=== PATIENT | male | born 1960 | race African-American/Black ===

== ENCOUNTER 2017-04-18 20:56 | Inpatient (IN) | payer MEDICAID, OTHER ==
[~2017-04-18] VITALS: Ht 170.2 cm; Wt 41.7 kg
[2017-04-18] MEDS: NACL 0.9% 1,000 ML IV SCH (01:00)
--- NOTE | 2017-04-18 20:56 | NUR ---
Patient BIBA ACLS accompanied by LACoFD, transferred to bed 2. RN evaluating patient at bedside.
[2017-04-18 21:00] VITALS: BP 128/96
--- NOTE | 2017-04-18 21:00 | NUR ---
Note siobhan in EDM - 04/18/17 at 2327 by MEDJN 57 Y/O Mary Jo MORALES FROM [facility] W/C/O ALOC. VSS, PT ALERT AND ORIENTED X 3, TACHY 114. MED HX PARALYZE FROM WAIST DOWN, AND HTN, CHOLOSTOMY. TERRY GONZALEZ MADE AWARE.
--- NOTE | 2017-04-18 21:00 | NUR ---
Deon mccann in EDM - 04/19/17 at 0041 by LUZ MARINA Patient noted to have existing wounds upon arrival to ER. Wound covered with dressing. PICTURES TO BE TAKEN. Physician informed.
--- NOTE | 2017-04-18 21:00 | NUR ---
Patient noted to have existing wounds TO COCYX AREA upon arrival to ER. Wound covered with dressing. PICTURES TO BE TAKEN. Physician informed.
--- NOTE | 2017-04-18 21:00 | NUR ---
57 Y/O M JORGEKirill FROM [facility] W/C/O ALOC. VSS, PT ALERT AND ORIENTED X 3, TACHY 114. MED HX DISABLE UNABLE TO WALK, AND HTN, CHOLOSTOMY. ER MD MADE AWARE.
[2017-04-18] MEDS ORDERED: NACL 0.9% 1,000 ML IV ONE ×2 (21:05→23:10)
--- NOTE | 2017-04-18 21:10 | NUR ---
TERRY GONZALEZ AT BEDSIDE.
--- NOTE | 2017-04-18 21:10 | NUR ---
PT REFUSES TO BE TURN, UNABLE TO ACCESS WOUND ON COCYX AREA, COVER WITH DRESSINGS. CHARGE NURSE MADE AWARE.
--- NOTE | 2017-04-18 21:51 | NUR ---
Patient taken to CT scan via gurney by Tour Desk.
--- NOTE | 2017-04-18 21:53 | NUR ---
PT TAKEN FOR CT SCAN
[2017-04-18 21:55] LABS: BASOPHILS # (AUTO) 0.4 K/uL (0.00-0.22); BASOPHILS % (AUTO) 2.2 % (0.0-2.0); EOSINOPHILS % (AUTO) 0.1 % (0.0-4.0); HEMATOCRIT 28.4 % (36-52); HEMOGLOBIN 9.1 g/dL (12.0-18.0); LYMPHOCYTES # (AUTO) 3.5 K/uL (2.0-11.5); LYMPHOCYTES % (AUTO) 19.9 % (20.5-51.1); MEAN CORPUSCULAR HEMOGLOBIN 28 pg (27-31); MEAN CORPUSCULAR HGB CONC 32 g/dL (33-37); MEAN CORPUSCULAR VOLUME 88 fL (80-94); MONOCYTES # (AUTO) 1.2 K/uL (0.8-1.0); MONOCYTES % (AUTO) 6.9 % (1.7-9.3); NEUTROPHILS # (AUTO) 12.4 K/uL (1.8-7.7); NEUTROPHILS % (AUTO) 70.9 % (42.2-75.2); PLATELET COUNT (AUTO) 509 K/uL (140-450); RED BLOOD CELL COUNT(AUTO) 3.21 MIL/uL (4.20-6.10); RED CELL DISTRIBUTION WIDTH 13.5 % (11.6-13.7); WHITE BLOOD COUNT (AUTO) 17.5 K/uL (4.8-10.8)
--- NOTE | 2017-04-18 22:04 | NUR ---
Patient returned from CT scan. RN re-evaluating patient at bedside.
[2017-04-18 22:06] LABS: ANION GAP 8.8 (8-16); CARBON DIOXIDE 31.1 mmol/L (21-32); POTASSIUM 4.9 mmol/L (3.5-5.1)
[2017-04-18 22:12] LABS: ALBUMIN 1.4 g/dL (3.4-5.0); TOTAL BILIRUBIN 0.3 mg/dL (0.0-1.0)
--- NOTE | 2017-04-18 22:21 | NUR ---
UNABLE TO OBTAIN URINE AT THE MOMENT, PT CAME WITH VACA IN PLACED, BUT NO URINE IN BAG. TERRY GONZALEZ MADE AWARE.
--- NOTE | 2017-04-18 22:40 | NUR ---
PT ASLEEP, ON MONITOR, NO S/S OF DISTRESS NOTED AT THE MOMENT.
--- NOTE | 2017-04-18 23:01 | NUR ---
Deon mccann in ED - 04/18/17 at 2302 by LUZ MARINA FLUSHED VACA CATHERER FOR SECOND TIME BUT NO URINE PRESENT AFTER FLUSHING.
--- NOTE | 2017-04-18 23:01 | NUR ---
FLUSHED VACA CATHERER FOR SECOND TIME BUT NO URINE PRESENT AFTER FLUSHING. DR GIL MADE AWARE.
[2017-04-18] MEDS ORDERED: ACETAMINOPHEN 325 MG TAB PO PRN (23:25)
[2017-04-18] MEDS ORDERED: ONDANSETRON 4 MG/2 ML VIAL IVP PRN (23:25)
[2017-04-18] MEDS ORDERED: PIPERACILLIN/TAZOBACTAM 3.375 GM in DEXTROSE 5% 50 ML IV ONE (23:25)
--- NOTE | 2017-04-19 00:12 | NUR ---
PT TRANSFERED TO FLOOR VIA GURNEY. ACCOMPANIED BY ME RN. MONITOR IN BED, NO S/S OF DISTRESS NOTED DURING TRANSFER.
[2017-04-19 00:16] VITALS: BP 92/65
--- NOTE | 2017-04-19 00:16 | NUR ---
PATIENT ADMITTED TO THE UNIT FROM ER VIA GURNEY. PATIENT IS AWAKE. AOX3. BEDBOUND. PATIENT ON O2 2L VIA NC. COLOSTOMY BAG IN PLACE. VACA CATHETER IN PLACE DRAINING RICHARD COLORED URINE. FALL RISK PROTOCOL IN PLACE. BED IN LOWEST POSITION, SIDE RAILS UP AND CALL LIGHT WITHIN REACH. WILL CONTINUE TO MONITOR.
--- NOTE | 2017-04-19 00:25 | NUR ---
Patient will be admitted to [facility]. Admited to TELEMETRY]. Will go to room 106B. Belongings list completed. Report to REMY BAINS.
--- NOTE | 2017-04-19 00:30 | NUR ---
PATIENT REFUSED TO REMOVE LONG SLEEVED SHIRT. STATED THAT ITS COLD AND HE WANTED TO KEEP IT ON
[2017-04-19] MEDS ORDERED: PIPERACILLIN/TAZOBACTAM 3.375 GM VIAL IV ONE (00:55)
--- NOTE | 2017-04-19 03:52 | NUR ---
PATIENT UNCOOPERATIVE AND CONFUSED. TRIED TO REORIENT PATIENT AND TELL HIM THE PLAN OF CARE AND WHY HE'S HERE IN THE HOSPITAL. PATIENT STILL CONFUSED. REFUSED VITAL SIGNS AND REFUSED ME TO TAKE WOUND PICTURES. SAFETY PRECAUTIONS IN PLACE. WILL CONTINUE TO MONITOR.
--- NOTE | 2017-04-19 05:42 | NUR ---
FORGE OPERATOR NOTIFIED THAT PATIENT REFUSED MORNING LABS
--- NOTE | 2017-04-19 06:30 | NUR ---
SPOKE WITH PATIENT ABOUT THE IMPORTANCE OF GETTING LABS DONE. PATIENT VERBALIZED UNDERSTANDING AND ALLOWED COMPUTER SYSTEMS ADMINISTRATOR TO DRAW BLOOD.
--- NOTE | 2017-04-19 06:35 | NUR ---
WOUND PICTURES TAKEN
--- NOTE | 2017-04-19 06:42 | NUR ---
PATIENT HAS BEEN SCREENED AND CATEGORIZED HIGH NUTRITION RISK. PATIENT WILL BE SEEN WITHIN 1-2 DAYS OF ADMISSION. 04/18/17-04/19/17 JEREMY HOBSON MS, RDN
--- NOTE | 2017-04-19 07:27 | NUR ---
PATIENT REPORT GIVEN TO MORNING NURSE. PATIENT IS IN STABLE CONDITION
--- NOTE | 2017-04-19 07:28 | NUR ---
RECEIVED PT IN BED. ASLEEP. AROUSABLE TO VOICE, ALERT ORIENTED X3. NO SOB NOTED. DENIES ANY PAIN OR DISCOMFORT AT THIS TIME. COLOSTOMY BAG IN PLACE. SAFETY PRECAUTION IN PLACE. ON BEDREST. CALL LIGHT WITHIN REACH.
[2017-04-19 07:34] LABS: BASOPHILS # (AUTO) 0.2 K/uL (0.00-0.22); BASOPHILS % (AUTO) 1.8 % (0.0-2.0); EOSINOPHILS # (AUTO) 0.1 K/uL (0-0.4); EOSINOPHILS % (AUTO) 0.4 % (0.0-4.0); HEMATOCRIT 26.2 % (36-52); HEMOGLOBIN 8.5 g/dL (12.0-18.0); LYMPHOCYTES # (AUTO) 1.9 K/uL (2.0-11.5); LYMPHOCYTES % (AUTO) 13.6 % (20.5-51.1); MEAN CORPUSCULAR HEMOGLOBIN 29 pg (27-31); MEAN CORPUSCULAR HGB CONC 33 g/dL (33-37); MEAN CORPUSCULAR VOLUME 88 fL (80-94); MONOCYTES # (AUTO) 0.9 K/uL (0.8-1.0); MONOCYTES % (AUTO) 6.3 % (1.7-9.3); NEUTROPHILS # (AUTO) 10.7 K/uL (1.8-7.7); NEUTROPHILS % (AUTO) 77.9 % (42.2-75.2); PLATELET COUNT (AUTO) 513 K/uL (140-450); RED BLOOD CELL COUNT(AUTO) 2.98 MIL/uL (4.20-6.10); RED CELL DISTRIBUTION WIDTH 13.3 % (11.6-13.7); WHITE BLOOD COUNT (AUTO) 13.8 K/uL (4.8-10.8)
[2017-04-19 07:38] LABS: ALBUMIN 1.3 g/dL (3.4-5.0); ANION GAP 10.6 (8-16); CARBON DIOXIDE 29.1 mmol/L (21-32); CREATININE 0.8 mg/dL (0.7-1.3); POTASSIUM 3.7 mmol/L (3.5-5.1); TOTAL BILIRUBIN 0.2 mg/dL (0.0-1.0)
[2017-04-19 08:00] VITALS: BP 85/61
[2017-04-19] MEDS: NACL 0.9% 1,000 ML IV SCH ×2 (09:02→19:24)
[2017-04-19] MEDS: ENOXAPARIN 40 MG/0.4 ML SYR SUBQ SCH (09:09)
--- NOTE | 2017-04-19 11:19 | NUR ---
04/19/17 RD INITIAL ASSESSMENT COMPLETED PLEASE REFER TO NUTRITION ASSESSMENT UNDER CARE ACTIVITY FOR ESTIMATED NUTRITIONAL NEEDS. RD RECOMMENDATIONS: 1. CONTINUE ON REGULAR DIET TOLERATED. 2. RDN TO ADD HEALTH SHAKES WITH ALL MEALS TID DUE TO UNDERWEIGHT STATUS AND INCREASED NEEDS FOR WOUND HEALING SUPPORT. 3. RECOMMEND PROSOURCE 1 PACKET TID TO PROVIDE A TOTAL OF 180 KCAL AND [address] GM [address]IN[address] WILL F/U 3-5 DAYS; MODERATE RISK. JEREMY HOBSON, , RDN
--- NOTE | 2017-04-19 12:04 | NUR ---
SISTER DIANA AND BROTHER JENNIFER CAME TO SEE PT. CALLED ADMITTING JHONATAN REGARDING THE PAPERS THAT NEEDS TO SIGNED. DIRECTED DIANA AND JENNIFER TO THE ADMITTING OFFICE.
--- NOTE | 2017-04-19 13:00 | NUR ---
GOOD SKIN CARE PROVIDED. REPOSITIONED OFFLOAD BONY PROMINENCE EVERY 2 HOURS. PT TOLERATED WELL.
[2017-04-19 16:00] VITALS: BP 90/62
[2017-04-19] MEDS: MORPHINE SULFATE 2 MG/ML SYR IVP PRN ×2 (18:28→22:17)
[2017-04-19 18:29] VITALS: BP 100/68
--- NOTE | 2017-04-19 18:40 | NUR ---
PT KEPT CLEAN, DRY, AND COMFORTABLE. NEEDS ATTENDED. NO SOB NOTED. PAIN OF 6/10 ON SACRAL WOUND SUBSIDING. WILL ENDORSE TO NEXT SHIFT. PT ON STABLE CONDITION. FOR CONTINUITY OF CARE.
--- NOTE | 2017-04-19 19:20 | NUR ---
RECEIVED REPORT FROM AM NURSE. PT IS AAOX4. ON ROOM AIR. IV ACCESS INTACT, PATENT AND ASYMPTOMATIC. NO SIGNS OF ACUTE DISTRESS NOTED, RESPIRATIONS EVEN AND UNLABORED. VACA CATH IN PLACE, COLOSTOMY BAG IN PLACE WELL. PLAN OF CARE DISCUSSED, PT VERBALIZED UNDERSTANDING. BED IN LOW POSITION, BILATERAL HALF SIDE RAIL UP, CALL LIGHT WITHIN REACH, WILL CONTINUE TO MONITOR.
--- NOTE | 2017-04-19 23:55 | NUR ---
PT REPOSITIONED AND CLEANED. PT TOLERATED WELL. DRESSING CHANGED ON SACRAL AREA AND LEFT/RIGHT BUTTOCK, MINIMAL DRAINAGE. GOOD SKIN CARE PROVIDED. PT TOLERATED WELL. WILL CONTINUE TO MONITOR.
[2017-04-20] VITALS: BP 102/64
[2017-04-20] MEDS: NACL 0.9% 1,000 ML IV SCH ×2 (05:24→15:35)
--- NOTE | 2017-04-20 07:15 | NUR ---
ENDORSED TO AM NURSE FOR CONTINUITY OF CARE. PT IN STABLE IN CONDITION.
--- NOTE | 2017-04-20 07:17 | NUR ---
RECEIVED PATIENT REPORT AT BEDSIDE FROM NIGHT NURSE. PATIENT IS AAOX3 AND SHOWS NO S/S OF ACUTE DISTRESS ON ROOM AIR. NOTED 3 DRY AND INTACT DRX ON THE SCRUM, COLOSTOMY BAG WITH BROWN STOOL, AND VACA CATHETER WITH RICHARD URINE DRAINING. PATIENT DENIES PAIN. NOTED IV ON THE LEFT FA WITH IVF'S INFUSING WELL. PATIENT WAS EXPLAINED POC FOR TODAY AND VERBALIZED UNDERSTANDING. SAFETY PRECAUTIONS IN PLACE, BED IN LOW POSITION WITH CALL LIGHT WITHIN REACH.
[2017-04-20 08:00] VITALS: BP 125/75
[2017-04-20] MEDS: ENOXAPARIN 40 MG/0.4 ML SYR SUBQ SCH (09:00)
--- NOTE | 2017-04-20 09:00 | NUR ---
PATIENT REFUSED SCHEDULED MEDICATIONS. PATIENT WAS EXPLAINED RISKS FOR NOT HAVING MEDICATION. ENFORCED SCD'S. PATIENT VERBALIZED UNDERSTANDING AND CONTINUED TO REFUSED MEDICATION.
--- NOTE | 2017-04-20 10:00 | NUR ---
WHILE ASSISTING WITH PERINEAL CARE FREDI AND RN NOTED SKIN OPENING ON THE LEFT HEEL. PICTURES TAKEN AND CHARTED. DRX'S ON THE SACRUM WERE CHANGED. WOUNDS WERE CLEANED WITH NS AND GAUZE, APPLIED GAUZE AND SECURED WITH OPTIFOAM DRX. WOUND CX'S WERE TAKEN AND SENT TO LAB. APPLIED NEW COLOSTOMY BAG. PATIENT REPOSITIONED. ALL NEEDS MET AT THIS TIME.
--- NOTE | 2017-04-20 12:30 | NUR ---
FAMILY AT BEDSIDE. PATIENT SHOWS NO S/S OF ACUTE DISTRESS AT THIS TIME.
[2017-04-20 12:41] LABS: BASOPHILS # (AUTO) 0.1 K/uL (0.00-0.22); BASOPHILS % (AUTO) 0.5 % (0.0-2.0); EOSINOPHILS % (AUTO) 0.2 % (0.0-4.0); HEMATOCRIT 27.9 % (36-52); HEMOGLOBIN 8.5 g/dL (12.0-18.0); LYMPHOCYTES # (AUTO) 1.6 K/uL (2.0-11.5); LYMPHOCYTES % (AUTO) 12.6 % (20.5-51.1); MEAN CORPUSCULAR HEMOGLOBIN 27 pg (27-31); MEAN CORPUSCULAR HGB CONC 30 g/dL (33-37); MEAN CORPUSCULAR VOLUME 88 fL (80-94); MONOCYTES # (AUTO) 0.6 K/uL (0.8-1.0); MONOCYTES % (AUTO) 4.5 % (1.7-9.3); NEUTROPHILS # (AUTO) 10.5 K/uL (1.8-7.7); NEUTROPHILS % (AUTO) 82.2 % (42.2-75.2); PLATELET COUNT (AUTO) 569 K/uL (140-450); RED BLOOD CELL COUNT(AUTO) 3.16 MIL/uL (4.20-6.10); RED CELL DISTRIBUTION WIDTH 13.4 % (11.6-13.7); WHITE BLOOD COUNT (AUTO) 12.8 K/uL (4.8-10.8)
[2017-04-20 12:43] LABS: ANION GAP 8.3 (8-16); CARBON DIOXIDE 29.3 mmol/L (21-32); CREATININE 0.6 mg/dL (0.7-1.3); POTASSIUM 3.6 mmol/L (3.5-5.1)
[2017-04-20] MEDS: MORPHINE SULFATE 2 MG/ML SYR IVP PRN (13:43)
--- NOTE | 2017-04-20 13:45 | NUR ---
PATIENT C/O BACK PAIN 09/28. ADMINISTERED MORPHINE 2 MG IVP. WILL REASSESS FOR PAIN IN 30 MIN.
--- NOTE | 2017-04-20 13:51 | NUR ---
RECEIVED PATIENT REPORT AT BEDSIDE FROM NIGHT NURSE. PATIENT IS AAOX2 AND SHOWS NO S/S OF ACUTE DISTRESS ON ROOM AIR. NOTED THREE INTACT DRX'S ON THE SACRAL REGION, WOUNDS ON BILATERAL HEELS, COLOSTOMY BAG WITH BROWN STOOL, AND VACA CATHETER WITH RICHARD URINE DRAINING. DENIES PAIN. NOTED IV ON THE LEFT FA WITH IVF'S INFUSING WELL. PATIENT WAS EXPLAINED POC FOR TODAY AND VERBALIZED UNDERSTANDING HOWEVER NEEDS CONSTANT REINFORCEMENT. SAFETY AND FALL RISK PRECAUTIONS IN PLACE, BED IN LOW POSITION WITH CALL LIGHT WITHIN REACH. Addendum: 04/20/17 at 1355 by Annabelle Lerner RN WRONG TIME
--- NOTE | 2017-04-20 14:30 | NUR ---
CALLED [facility] AND SPOKE TO REMY JUÁREZ. PATIENT WILL GO TO ROOM 418B. SAME NUMBER TO CALL FOR REPORT.
--- NOTE | 2017-04-20 14:45 | NUR ---
PATIENT WAS REPOSITIONED. FAMILY IS AT BEDSIDE. PATIENT'S NEEDS MET AT THIS TIME.
[2017-04-20 16:00] VITALS: BP 124/85
[2017-04-20] MEDS ORDERED: ACET-1182 PO (16:39)
[2017-04-20] MEDS ORDERED: CEPH500C16 PO (16:41)
--- NOTE | 2017-04-20 17:00 | NUR ---
PATIENT WAS REPOSITIONED. ALL NEEDS MET AT THIS TIME. BED IN LOW POSITION WITH CALL LIGHT WITHIN REACH.
[2017-04-20] MEDS ORDERED: CEPHALEXIN 500 MG CAP PO SCH (18:00)
--- NOTE | 2017-04-20 18:51 | NUR ---
[facility] ON UNIT. PATIENT HAS BEEN DISCHARGED. PATIENT IS UNABLE TO SIGN. TWO RN'S SIGNED PAPERWORK. ALL PAPERWORK SIGNED, ALL QUESTIONS ANSWERED AND PATIENT VERBALIZED UNDERSTANDING OF CONTINUITY OF CARE [facility]. ALL BELONGINGS IN PATIENT'S POSSESSION. IV DISCONTINUED WITH CANNULA INTACT. WRISTBANDS REMOVED, PATIENT LEFT IN STABLE CONDITION. [facility] LEFT UNIT WITH PATIENT IN [facility]. PATIENT LEFT IN STABLE CONDITION.
--- NOTE | 2017-04-22 08:33 | NUR ---
Wound care evaluation not done, pt. discharged.
== END 2017-04-20 18:51 | DRG 720 ==
LOC: MED 20:56 → MTU 23:33
PROVIDERS: ADMIT Hospitalist; ATTEND Hospitalist
DX: A41.9 Sepsis, unspecified organism (principal); G93.41 Metabolic encephalopathy; L89.153 Pressure ulcer of sacral region, stage 3; L89.329 Pressure ulcer of left buttock, unspecified stage; E44.0 Moderate protein-calorie malnutrition; G82.20 Paraplegia, unspecified; I10 Essential (primary) hypertension; D64.9 Anemia, unspecified; E88.09 Other disorders of plasma-protein metabolism, not elsewhere classified; Z90.49 Acquired absence of other specified parts of digestive tract
CPT/HCPCS: 36415; 51702; 70450; 71010; 80048; 80053; 83605; 85025; 87040; 87070; 87081; 87086; 87186; 96360; 97110; 99285; J1650; J2270; J2543; J7030; J7060; Q0092